=== PATIENT | female | born 1985 | race Caucasian/White ===

== ENCOUNTER 2018-12-23 18:33 | Inpatient (IN) | payer MEDICAID ==
[~2018-12-23] VITALS: Ht 167.6 cm; Wt 86.0 kg
[~2018-12-23 18:33] MED LIST: CALC-649 PO; FERR27TA PO; PREN1TAB49 PO
[2018-12-23 20:01] VITALS: BP 143/83; PULSE 70; RESP 18; Ht 167.6 cm; Wt 86.0 kg
[2018-12-23] MEDS ORDERED: LACTATED RINGER'S 1,000 ML IV SCH (20:19)
[2018-12-23] MEDS ORDERED: CARBOPROST 250 MCG INJ IM PRN (20:30)
[2018-12-23] MEDS ORDERED: OXYCODONE/ASPIRIN (4.88/325) TAB PO PRN (20:30)
[2018-12-23] MEDS ORDERED: OXYTOCIN 30 UNITS/LR 500 ML IV PRN (20:30)
[2018-12-23] MEDS ORDERED: IBUPROFEN 600 MG TAB PO PRN (20:30)
[2018-12-23] MEDS ORDERED: LIDOCAINE 1% (MPF) 30 ML INJ INJ PRN (20:30)
[2018-12-23] MEDS ORDERED: OXYTOCIN 30 UNITS/LR 500 ML IV SCH ×2 (20:30)
[2018-12-23] MEDS ORDERED: MISOPROSTOL 200 MCG TAB PR PRN (20:30)
[2018-12-23] MEDS ORDERED: BUTORPHANOL 2 MG INJ IV PRN (20:30)
[2018-12-23] MEDS ORDERED: METHYLERGONOVINE 0.2 MG INJ IM PRN (20:30)
[2018-12-23] MEDS: MISOPROSTOL 50 MCG CAPSULE PO SCH (21:02)
[2018-12-23] MEDS ORDERED: MAGNESIUM SULFATE 4 GM/100 ML 100 ML IVPB ONE (22:30)
[2018-12-23] MEDS ORDERED: LABETALOL HCL 20MG INJ IV ONE (22:30)
[2018-12-23] MEDS ORDERED: hydrALAzine 20 MG INJ IV PRN (22:30)
[2018-12-23] MEDS ORDERED: CA GLUCONATE (GM) 10% 10ML INJ IV PRN (22:30)
[2018-12-23] MEDS ORDERED: LABETALOL HCL 20MG INJ IV PRN ×2 (22:30)
[2018-12-23] MEDS: MAGNESIUM SULFATE 20 GM/500 ML 500 ML IV SCH (23:25)
[2018-12-24] MEDS: MISOPROSTOL 50 MCG CAPSULE PO SCH (01:00)
[2018-12-24] MEDS ORDERED: OXYTOCIN 30 UNITS/LR 500 ML IV SCH ×2 (02:00→13:15)
[2018-12-24] MEDS: MAGNESIUM SULFATE 20 GM/500 ML 500 ML IV SCH (09:49)
--- NOTE | 2018-12-24 10:53 | HP ---
Date/Time of Note Date/Time of Note DATE: 12/24/18 TIME: 10:52 OB - History Hx of Present Free Text/Dictation at 39 weeks with elevated BP for induction Care: Good Care Ultrasounds: Normal mid trimester US Obstetrical Complications: None Medical Complications: None Past Family/Social History * Past Medical, Surgical, Family and Obstetric Histories reviewed from chart. OB Admission Exam Vital Signs Vital Signs Vital Signs Date Temp Pulse Resp B/P (MAP) Pulse Ox O2 O2 Flow FiO2 Time Delivery Rate 12/23/18 98.4 70 18 143/83 20:01 (103) Physical Exam HEENT: WNL Heart: Rhythm Normal Lungs: Clear, Equal Abdomen: WNL Extremities: Normal Reflexes: Normal Cervical Dilatation: 10cm Effacement: 100% Station: +3 Membranes: Ruptured Amniotic Fluid: Clear Heart Rate: 130's Accelerations: Accelerations Present Decelerations: No Decelerations Varibility: Moderate Contractions on Admission: 6-10 Minutes Apart Last 72 hours Lab Results CBC & BMP 12/23/18 20:45 Liver Function Test 12/23/18 20:45 Alanine Aminotransferase (ALT/SGPT) 63 Albumin 3.4 Alkaline Phosphatase 169 H Aspartate Amino Transf (AST/SGOT) 53 H Direct Bilirubin 0.00 Total Protein 7.2 Magnesium Level Test 12/24/18 01:06 12/24/18 05:42 Magnesium Level 4.7 H 5.7 *H OB Assessment/Plan Plan: Induction LATASHA SANDOVAL MD Dec 24, 2018 10:53
--- NOTE | 2018-12-24 10:54 | LDN ---
Date/Time of Note Date/Time of Note DATE: 12/24/18 TIME: 10:53 Delivery Summary Placenta Delivered: Spontaneously Meconium: none Episiotomy: No Anesthesia type: None Estimated blood loss: 300 Sponge & Needle done & correct: Yes All needle counts correct: Yes Any foreign bodies felt in the: No LATASHA SANDOVAL MD Dec 24, 2018 10:54
[2018-12-24 13:10] VITALS: BP 133/67; PULSE 73; RESP 20
[2018-12-24] MEDS ORDERED: LACTATED RINGER'S 1,000 ML IV* SCH (13:15)
[2018-12-24] MEDS ORDERED: CARBOPROST 250 MCG INJ IM PRN (13:30)
[2018-12-24] MEDS ORDERED: OXYTOCIN 30 UNITS/LR 500 ML IV PRN (13:30)
[2018-12-24] MEDS ORDERED: ACETAMINOPHEN 325 MG TAB PO PRN (13:30)
[2018-12-24] MEDS ORDERED: MISOPROSTOL 200 MCG TAB PR PRN (13:30)
[2018-12-24] MEDS ORDERED: DIPHENHYDRAMINE 25 MG CAP PO PRN (13:30)
[2018-12-24] MEDS ORDERED: LANOLIN HPA 1 PKT TOP PRN (13:30)
[2018-12-24] MEDS ORDERED: WITCH HAZEL/GLYCERIN PAD PR PRN (13:30)
[2018-12-24] MEDS ORDERED: METHYLERGONOVINE 0.2 MG INJ IM PRN (13:30)
[2018-12-24] MEDS ORDERED: BENZOCAINE 20% 56 ML SPRAY TOP PRN (13:30)
[2018-12-24] MEDS ORDERED: HYDROCODONE/APAP (5/325) TAB PO PRN (13:30)
[2018-12-24] MEDS ORDERED: MAGNESIUM HYDROXIDE 30ML CUP PO PRN (13:30)
[2018-12-24] MEDS ORDERED: ZOLPIDEM 5 MG TAB PO PRN (13:30)
[2018-12-24 16:42] VITALS: BP 139/78; PULSE 72; RESP 18
[2018-12-24] MEDS: IBUPROFEN 800 MG TAB PO SCH ×2 (17:35→23:21)
[2018-12-24 19:20] VITALS: BP 130/70; PULSE 60; RESP 18
[2018-12-25] VITALS (7 sets, daily range): BP systolic 129–151; BP diastolic 72–89; PULSE 65–78; RESP 18
[2018-12-25] MEDS: IBUPROFEN 800 MG TAB PO SCH ×4 (05:49→23:59)
[2018-12-25] MEDS: SENNA/DOCUSATE NA (8.6MG/50MG) TAB PO PRN (21:04)
--- NOTE | 2018-12-25 21:25 | QN ---
Documentation Comment PPD#1 S/P No complaints VSS VS - Last 72 Hours, by Label Date Temp Pulse Resp B/P (MAP) Pulse Ox O2 O2 Flow FiO2 Time Delivery Rate 12/25/18 98.5 65 18 151/89 Room Air 19:25 (109) 12/25/18 98.2 18 18:13 12/25/18 98.2 76 18 139/76 Room Air 17:00 (97) 12/25/18 98.1 76 18 135/72 Room Air 12:30 (93) 12/25/18 98.3 78 18 130/73 Room Air 08:00 (92) 12/25/18 97.8 70 18 130/80 Room Air 03:55 (97) 12/25/18 98.5 69 129/81 Room Air 00:15 (97) 12/24/18 97.8 60 18 130/70 Room Air 19:20 (90) 12/24/18 98.3 72 18 139/78 Room Air 16:42 (98) 12/24/18 98.4 73 20 133/67 Room Air 13:10 (89) 12/23/18 98.4 70 18 143/83 20:01 (103) Hematology - 72 Hrs Test 12/23/18 20:45 12/25/18 06:02 Hematocrit 34.5 % (37.0-47.0) L 30.8 % (37.0-47.0) L Hemoglobin 11.2 g/dl (12.0-16.0) L 10.0 g/dl (12.0-16.0) L Mean Corpuscular 30.6 pg (29.0-33.0) 30.7 pg (29.0-33.0) Hemoglobin Mean Corpuscular 32.5 g/dl (32.0-37.0) 32.5 g/dl (32.0-37.0) Hemoglobin Concent Mean Corpuscular Volume 94.3 fl (82.0-101.0) 94.5 fl (82.0-101.0) Mean Platelet Volume 13.6 fl (7.4-10.4) H 13.2 fl (7.4-10.4) H Platelet Count 119 10^3/UL (140-415) L 100 10^3/UL (140-415) L Red Blood Count 3.66 10^6/ul (4.20-5.40) 3.26 10^6/ul (4.20-5.40) L L Red Cell Distribution 14.0 % (11.5-14.5) 14.1 % (11.5-14.5) Width White Blood Count 6.2 10^3/ul (4.8-10.8) 8.1 10^3/ul (4.8-10.8) # Chemistry Test 12/23/18 20:45 12/24/18 01:06 12/24/18 05:42 12/25/18 06:02 Sodium Level 136 mmol/L (135-144 ) Potassium 3.9 Level mmol/L (3.5-5.1 ) Chloride Level 110 mmol/L (97-110) Carbon Dioxide 20 Level mmol/L (21-31) L Anion Gap 6 (5-13) Blood Urea 10 mg/dl (7-20) Nitrogen Creatinine 0.69 mg/dl (0.44-1.0 0) Est Glomerular > 60 Filtrat mL/min (>60) Rate mL/min Glucose Level 82 mg/dl (70-220) Uric Acid 5.8 mg/dl (3.1-7.9) Calcium Level 9.2 mg/dl (8.4-10.2 ) Total 0.3 Bilirubin mg/dl (0.2-1.3) Direct 0.00 Bilirubin mg/dl (0.00-0.2 0) Indirect 0.3 Bilirubin mg/dl (0-1.1) Aspartate Amino 53 IU/L (15-46) Transf (AST/SGO H T) Alanine 63 IU/L (13-69) Aminotransferas e (ALT/SGPT) Alkaline 169 Phosphatase IU/L (42-121) H Total Protein 7.2 g/dl (6.1-8.1) Albumin 3.4 g/dl (3.3-4.9) Globulin 3.80 g/dl (1.3-3.2) H Albumin/Globuli 0.89 n Ratio Magnesium 4.7 5.7 2.7 Level mg/dl (1.7-2.5 mg/dl (1.7-2.5 mg/dl (1.7-2.5 ) H ) *H ) #H Abd soft, fundus firm perineum intact ext NT A/P patient is stable and doing well Continue with routine care JANI SEALS MD Dec 25, 2018 21:25
[2018-12-26 03:50] VITALS: BP 139/83; PULSE 64; RESP 18
[2018-12-26] MEDS: IBUPROFEN 800 MG TAB PO SCH ×2 (05:51→12:16)
[2018-12-26 08:45] VITALS: BP 132/79; PULSE 79; RESP 18
--- NOTE | 2018-12-26 08:45 | DS ---
Date/Time of Note Date/Time of Note DATE: 12/26/18 TIME: 08:44 Discharge Summary Admission/Discharge Info Admit Date/Time Dec 23, 2018 at 18:33 Discharge Date/Time Discharge Diagnosis term preg Patient Condition: Stable Hospital Course unremarkable Home Meds Reported Medications Ferrous Sulfate (Iron) 1 Tab Tablet, 1 TAB PO DAILY, #1 03/01/11 Calcium Carbonate (Calcium) 1 Tab Tablet, 1 TAB PO DAILY, #1 03/01/11 Vits W-Ca,Fe,Fa(<1MG) () 1 Tab Tablet, 1 TAB PO DAILY 03/01/11 Primary Care Provider Care Physician No Primary LATASHA SANDOVAL MD Dec 26, 2018 08:45
[2018-12-26] MEDS ORDERED: DIPHTH/TET/ACEL PERTUSS (ADULT) 0.5 ML VIAL IM* ONE (09:00)
[2018-12-26] MEDS ORDERED: VARICELLA VACCINE LIVE/PF 1,350 UNIT/0.5 ML ML SC* ONE (09:00)
[2018-12-26] MEDS ORDERED: MEASLES,MUMPS,RUBELLA VACCINE INJ SC* ONE (09:00)
[2018-12-26] MEDS: SENNA/DOCUSATE NA (8.6MG/50MG) TAB PO PRN (09:04)
--- NOTE | 2018-12-27 14:38 | DELSUM ---
Delivery Summary A-C Datetime Report Generated by CPN: 12/27/2018 14:37 DELIVERY PERSONNEL Instant Potato Processor: Sejal Funes MATERNAL INFORMATION Delivery Anesthesia: None Medications in Delivery: LR WITH 30 UNITS PITOCIN Delivery QBL (ml): 300 Placenta Cultured: No Maternal Complications: None Other Maternal Complications: HIGH BP LABOR SUMMARY EDC: 12/27/2018 00:00 No. Babies in Womb: 1 Attempted: No Labor Anesthesia: None LABOR INFORMATION Reason for Induction: Gest. HTN/PreEclam/Eclamp Onset of Labor: 12/24/2018 01:20 Complete Dilatation: 12/24/2018 10:11 Cervical Ripening Agents: Cytotec @ 50 Group B Beta Strep: Negative Antibiotics # of Doses: 0 Steroids Given: None Reason Steroids Not Administered: Not Applicable MEMBRANES Membranes Rupture Method: Spontaneous Rupture of Membranes: 12/24/2018 09:42 Length of Rupture (hr): 0.73 Amniotic Fluid Color: Clear Amniotic Fluid Amount: Moderate Amniotic Fluid Odor: Normal STAGES OF LABOR Stage 1 hr: 8 Stage 1 min: 51 Stage 2 hr: 0 Stage 2 min: 15 Stage 3 hr: 0 Stage 3 min: 1 Total Time in Labor hr: 9 Total Time in Labor min: 7 VAGINAL DELIVERY Episiotomy: None Laceration Extension: N/A Laceration Type: None Laceration Repair: No Initial Vag Sponge Count: 10 Final Vag Sponge Count: 10 Initial Vag Sharps Count: 1 Final Vag Sharps Count: 1 Sponge Count Correct: Yes Sharps Count Correct: Yes BABY A INFORMATION Delivery Date/Time: 12/24/2018 10:26 Method of Delivery: Vaginal Born in Route : No : N/A Forceps: N/A Vacuum Extraction: N/A Shoulder Dystocia : No SHOULDER DYSTOCIA BABY A Infant Delivery Date/Time: 12/24/2018 10:26 PRESENTATION/POSITION BABY A Presentation: Cephalic Cephalic Presentation: Vertex Vertex Position: Left Occipital Anterior Breech Presentation: N/A PLACENTA INFORMATION BABY A Placenta Delivery Time : 12/24/2018 10:27 Placenta Method of Delivery: Spontaneous Placenta Status: Delivered SCORES BABY A Heart Rate 1 min: >100 bpm Resp Effort 1 min: Good Cry Reflex Irritability 1 min: Cough/Sneeze/Pulls Away Muscle Tone 1 min: Active Motion Color 1 min: Body Lavon, Extremit Blue Resuscitation Effort 1 min: Tactile Stimulation SCORE 1 MIN: 9 Heart Rate 5 min: >100 bpm Resp Effort 5 min: Good Cry Reflex Irritability 5 min: Cough/Sneeze/Pulls Away Muscle Tone 5 min: Active Motion Color 5 min: Body Lavon, Extremit Blue Resuscitation Effort 5 min: Tactile Stimulation SCORE 5 MIN: 9 INFORMATION BABY A Gestational Age at Delivery: 39.4 Gestational Status: Full Term- 39- 40.6 Weeks Infant Outcome : Liveborn, with signs of life Infant Condition : Stable Infant Sex: Female IDENTIFICATION/MEDS BABY A ID Band Number: [id number] ID Band Location: Right Leg; Left Arm Sensor Applied: Yes Sensor Number: [id number] Sensor Location : Cord Clamp Vitamin K Given : Not Given Erythromycin Given: Not Given WEIGHT/LENGTH BABY A Infant Birthweight (gm): 3145 Infant Weight (lb): 6 Weight (oz): 15 Length (in): 20.00 Infant Length (cm): 50.80 CORD INFORMATION BABY A No. Cord Vessels: 3 Nuchal Cord : N/A Cord Blood Taken: Yes Suction: Mouth; Nose ASSESSMENT BABY A Infant Complications: None Physical Findings at Delivery: Within Normal Limits Respirations: Appears Normal Proof Technician Helper/ALS Called : No Transferred To: Remains with Mother
== END 2018-12-26 14:30 | disposition home or self-care (01) | DRG 807 ==
LOC: L-D 18:33 → PP1 12-24 13:13
PROVIDERS: ADMIT Obstetrics & Gynecology; ATTEND Obstetrics & Gynecology
PROC: 10E0XZZ Delivery of Products of Conception, External Approach (ICD-10-PCS; principal; 2018-12-24)
DX: O13.4 Gestational [pregnancy-induced] hypertension without significant proteinuria, complicating childbirth (principal); Z37.0 Single live birth; Z3A.39 39 weeks gestation of pregnancy
CPT/HCPCS: 80053; 81001; 83735; 84560; 85025; 85384; 85610; 85730; 86592; 86850; 86900; 86901; 87340; 90716; J0595; J2590; J3475; J7120